=== PATIENT | male | born 1965 | race Caucasian/White ===

== ENCOUNTER 2018-02-21 06:41 | Inpatient (IN) | payer MEDICARE ==
[~2018-02-21] VITALS: Ht 195.6 cm; Wt 112.9 kg
[2018-02-21] VITALS (16 sets, daily range): BP systolic 98–157; BP diastolic 54–108; BMI 29.7
--- NOTE | ~2018-02-21 | CN ---
PATIENT NAME:ALBINO RENDON MEDICAL RECORD: [id number] : 67 LOCATION:D.MS [id number] ADMIT DATE: 02/21/18 ACCOUNT: [id number] CONSULTING PHYSICIAN: CRISTAL BREEN MD REFERRING PHYSICIAN: MARIANO VAIL MD DATE OF CONSULTATION: 02/21/2018 CONSULT REQUESTING PHYSICIAN: Mariano Vail MD REASON FOR CONSULTATION: 1. Acute hypoxic hypercapnic respiratory failure. 2. Respiratory acidosis. CTA showed pulmonary nodule. HISTORY OF PRESENT ILLNESS: Mr. Rendon is a 52-year-old gentleman. He had some drinks yesterday and he also smoked cocaine. When the patient lied down, he had shortness of breath. The patient was brought into the ER. He was in alcohol intoxication and also wheezing. Now, the patient is more awake and alert. Breathing has significantly improved. The patient had CTA of the chest which showed multiple pulmonary nodules without any infiltrate. REVIEW OF THE SYSTEMS: Mainly in the history of present illness. PAST MEDICAL HISTORY: 1. COPD. 2. Obstructive sleep apnea. The patient is noncompliant. 3. Coronary artery disease. 4. Hypertension. 5. History of syncope. 6. Diabetes mellitus. 7. Gastroesophageal reflux disease. 8. History of testicular cancer in 1997. He was treated with chemotherapy, right orchiectomy. OTHER SURGICAL HISTORY: He had bilateral knee replacement and cardiac catheterization with stent placement. ALLERGIES: HE IS ALLERGIC TO BUSPAR AND HALOPERIDOL. MEDICATIONS: Instaradio was reviewed. PERSONAL AND SOCIAL HISTORY: The patient is still everyday smoking. He is drinking on regular basis. He has recreational drug, cocaine. FAMILY HISTORY: Significant for cardiovascular disease. PHYSICAL EXAMINATION: GENERAL: Now, the patient is lying comfortably in bed. He is not in acute distress. VITAL SIGNS: The blood pressure is 101/72, pulse is 72, respiration is 18, temperature is 98.4, and SpO2 is 95% on oxymizer. HEENT: Conjunctivae are pink. Sclerae are not icteric. NECK: Neck is supple. No JVD. CHEST: There is prolonged expiration with wheezing. HEART: Rhythm regular. Normal sound. No murmur. ABDOMEN: Abdomen is soft. Bowel sounds present. No hepatosplenomegaly. CONSULT REPORT [id number] ALBINO RENDON RECTAL: Deferred. EXTREMITIES: No cyanosis. No clubbing. No pedal edema. CENTRAL NERVOUS SYSTEM: The patient is awake and alert. There is no obvious skin abnormality. The gait was not tested. CTA of the chest did not show any pulmonary embolism. There were bilateral pulmonary nodules and the maximum size was 8 mm. OTHER LABORATORY DATA: CBC: WBC 9.4, hemoglobin 15.7, hematocrit 43.7, platelet count is 239. ABG on admission; the pH was 7.16, pCO2 was 56.9, the pO2 was 91, bicarb was 20.4. The repeat ABG; pH was 7.29, pCO2 was 46.4. IMPRESSION: 1. Acute hypoxic hypercapnic respiratory failure. 2. Respiratory acidosis. 3. Acute exacerbation of COPD. 4. Tracheobronchitis. 5. Multiple pulmonary nodules. Differential diagnosis is rule out metastatic CA of the testis. Other differential diagnosis includes sarcoidosis and infectious process. 6. Alcoholism. 7. Tobacco dependence syndrome. 8. Recreational drug abuse. RECOMMENDATION: 1. Continue supplemental oxygen. 2. Start on albuterol/ipratropium nebulizer, Brovana and budesonide nebulizer. 3. Methylprednisolone IV. 4. Continue Levaquin. I will discontinue meropenem. 5. Methylprednisolone IV. 6. I will check S-level, alpha-1 antitrypsin phenotype. Check the fungal antibody serology. 7. We will consult Dr. Christianson. Dr. Vail, thank you for involving me in the care of Mr. Rendon. TRANSINT:[id number] Voice Confirmation ID: [id number] DOCUMENT ID: [id number] CRISTAL BREEN MD at 1806 CC: [id number] DICTATION DATE: 02/21/18 1845 DIRECTOR OF PAYROLL: 02/21/18 192 DIS IN 02/24/18 [facility] [address] [place] [address]
[~2018-02-21 06:41] MED LIST: ABILIFY10 MG PO; ALTACE10 MG PO; ASPIRIN325 MG PO; ATIVAN1 MG PO; BETAPACE 80 MG80 MG PO; COMBIVENT RESPIM4 GM INH; CRESTOR20 MG PO; CYCLOBENZAPRINE10 MG PO; DEPAKOTE500 MG PO; FIORICET TABLET1 TAB PO; FLEXERIL10 MG PO; JANUVIA25 MG PO; KLONOPIN1 MG PO; LEVEMIR100 U/M1 SQ; LONITEN10 MG PO; NEXIUM40 MG PO; NICODERM C1 PATCH .1 TRANSDERM; NITROMIST8.5 GM SL; NORCO 10/325 TA1 TA1 PO; NORVASC10 MG PO; PLAVIX75 MG PO; PRILOSEC10 M1 PO; TENORMIN100 MG PO; TESTOSTERON200 MG/ML IM
[2018-02-21 06:58] LABS: BASOPHILS 0.1 % (0-2); EOSINOPHILS 0.1 % (0-7); HEMATOCRIT 43.7 % (42.0-54.0); HEMOGLOBIN 15.7 g/dL (13.5-17.5); IMMATURE GRANULOCYTES 0.4 % (0-5); LYMPHOCYTES 20.9 % (15-50); MCHC 35.9 g/dL (31.0-37.0); MCV 94.6 fL (80.0-100.0); MEAN PLATELET VOLUME 9.6 fL (7.4-10.4); MONOCYTES 5.7 % (2-11); NEUTROPHILS 72.8 % (40-80); PLATELET COUNT 239 10x3/uL (130-400); RBC 4.62 10x6/uL (4.20-6.10); RDW 12.9 % (11.5-14.5); WBC 9.5 10x3/uL (4.8-10.8)
[2018-02-21 07:17] LABS: ALBUMIN 3.6 g/dL (3.4-5.0); ALKALINE PHOSPHATASE 88 U/L (46-116); ALT (SGPT) 57 U/L (10-68); BILIRUBIN - TOTAL 0.76 mg/dL (0.2-1.3); CALC OSMOLALITY 280 mosm/kg (275-300); CALCIUM 8.9 mg/dL (8.5-10.1); CARBON DIOXIDE 18.7 mmol/L (21.0-32.0); CHLORIDE - SERUM 93 mmol/L (98-107); CREATININE - SERUM 1.2 mg/dL (0.6-1.3); POTASSIUM - SERUM 3.4 mmol/L (3.5-5.1); PROTEIN - SERUM 7.7 g/dL (6.4-8.2); SODIUM 135 mmol/L (136-145); UREA NITROGEN 6 mg/dL (7-18); eGFR NON AFRICAN AMERICAN 68 mL/min (90-120)
[2018-02-21 07:18] LABS: UDS - AMPHET NEGATIVE QUAL (NEGATIVE); UDS - BARB NEGATIVE QUAL (NEGATIVE); UDS - BENZO NEGATIVE QUAL (NEGATIVE); UDS - COCAINE POSITIVE QUAL (NEGATIVE); UDS - OPIATE NEGATIVE QUAL (NEGATIVE); UDS - PCP NEGATIVE QUAL (NEGATIVE); UDS - THC NEGATIVE QUAL (NEGATIVE)
[2018-02-21 07:20] LABS: GLUCOSE 329 mg/dL (74-106)
[2018-02-21 07:29] LABS: CREATINE KINASE 116 UL (21-232); PRO BNP 190 pg/mL (0-125); TROPONIN-I < 0.017 ng/mL (0.000-0.060)
[2018-02-21 07:30] LABS: APPEARANCE CLOUDY (CLEAR); BILIRUBIN NEGATIVE (NEGATIVE); COLOR YELLOW (YELLOW); GLUCOSE 1000 mg/dL (NEGATIVE); KETONE NEGATIVE (NEGATIVE); NITRITE NEGATIVE (NEGATIVE); PROTEIN 3+ mg/dL (NEGATIVE); SPECIFIC GRAVITY 1.025 (1.005-1.020); UROBILINOGEN NORMAL (NORMAL)
[2018-02-21 07:32] LABS: AMORPHOUS SEDIMENT <1+ /lpf (NONE SEEN); BACTERIA FEW /hpf (NONE SEEN); EPITHELIAL CELLS 0-5 /hpf (0-5); RED CELLS - URINE 0-5 /hpf (0-5); SPERMATOZOA PRESENT /hpf (NONE SEEN); WHITE CELLS - URINE 0-5 /hpf (0-5)
[2018-02-21 08:40] LABS: KETONE - SERUM NEGATIVE (NEGATIVE)
[2018-02-21] MEDS ORDERED: LEVEMIR100 U/M1 SC ×2 (10:14→10:15)
[2018-02-21] MEDS ORDERED: MULTIPLE VITAMI1 TA1 PO (10:19)
[2018-02-22] VITALS (17 sets, daily range): BP systolic 103–136; BP diastolic 60–85; Ht 195.6 cm; Wt 112.9 kg
[2018-02-22 03:51] LABS: BASOPHILS 0 % (0-2); EOSINOPHILS 0 % (0-7); HEMATOCRIT 40.9 % (42.0-54.0); HEMOGLOBIN 14.7 g/dL (13.5-17.5); IMMATURE GRANULOCYTES 0.2 % (0-5); LYMPHOCYTES 4.2 % (15-50); MCHC 35.9 g/dL (31.0-37.0); MCV 94.7 fL (80.0-100.0); MEAN PLATELET VOLUME 9.6 fL (7.4-10.4); MONOCYTES 4.5 % (2-11); NEUTROPHILS 91.1 % (40-80); RBC 4.32 10x6/uL (4.20-6.10)
[2018-02-22 04:20] LABS: ALKALINE PHOSPHATASE 63 U/L (46-116); ALT (SGPT) 44 U/L (10-68); CALCIUM 8.6 mg/dL (8.5-10.1); CHLORIDE - SERUM 101 mmol/L (98-107); LDH 165 U/L (85-227); PROTEIN - SERUM 6.8 g/dL (6.4-8.2); SODIUM 139 mmol/L (136-145)
[2018-02-22 04:24] LABS: CALC OSMOLALITY 281 mosm/kg (275-300); CARBON DIOXIDE 31.4 mmol/L (21.0-32.0); CREATININE - SERUM 0.8 mg/dL (0.6-1.3); GLUCOSE 193 mg/dL (74-106); POTASSIUM - SERUM 4.2 mmol/L (3.5-5.1); UREA NITROGEN 10 mg/dL (7-18); eGFR NON AFRICAN AMERICAN > 90 mL/min (90-120)
[2018-02-22 04:25] LABS: PLATELET COUNT 188 10x3/uL (130-400); WBC 12.3 10x3/uL (4.8-10.8)
[2018-02-23 00:33] VITALS: BP 135/81
[2018-02-23 04:00] VITALS: BP 117/65
[2018-02-23 07:13] LABS: BASOPHILS 0 % (0-2); EOSINOPHILS 0 % (0-7); HEMATOCRIT 41.1 % (42.0-54.0); HEMOGLOBIN 14.5 g/dL (13.5-17.5); IMMATURE GRANULOCYTES 0.3 % (0-5); MCH 33.7 pg (26.0-34.0); MCHC 35.3 g/dL (31.0-37.0); MCV 95.6 fL (80.0-100.0); MEAN PLATELET VOLUME 9.8 fL (7.4-10.4); NEUTROPHILS 91.7 % (40-80); PLATELET COUNT 183 10x3/uL (130-400); RDW 13.3 % (11.5-14.5); WBC 10.2 10x3/uL (4.8-10.8)
[2018-02-23 07:27] LABS: ALBUMIN 2.7 g/dL (3.4-5.0); ALKALINE PHOSPHATASE 51 U/L (46-116); ALT (SGPT) 41 U/L (10-68); BILIRUBIN - TOTAL 0.34 mg/dL (0.2-1.3); CALC OSMOLALITY 274 mosm/kg (275-300); CALCIUM 8.9 mg/dL (8.5-10.1); CARBON DIOXIDE 28.1 mmol/L (21.0-32.0); CHLORIDE - SERUM 100 mmol/L (98-107); CREATININE - SERUM 0.7 mg/dL (0.6-1.3); GLUCOSE 131 mg/dL (74-106); MAGNESIUM - SERUM 1.6 mg/dL (1.8-2.4); PHOSPHOROUS 3.7 mg/dL (2.5-4.9); POTASSIUM - SERUM 4.1 mmol/L (3.5-5.1); PROTEIN - SERUM 6.7 g/dL (6.4-8.2); SODIUM 136 mmol/L (136-145); UREA NITROGEN 14 mg/dL (7-18); eGFR NON AFRICAN AMERICAN > 90 mL/min (90-120)
[2018-02-23 07:36] LABS: HCG-QUANTITATIVE(TUMOR MARKER) <1 mIU/mL (0-3)
[2018-02-23 08:42] VITALS: BP 144/84
[2018-02-23 09:18] LABS: ALPHA FETOPROTEIN -(TUMOR MRK) 3.4 ng/mL (0.0-8.3)
[2018-02-23 12:43] VITALS: BP 124/77
[2018-02-23 16:47] VITALS: BP 138/85
[2018-02-23 20:00] VITALS: BP 143/86
[2018-02-24 03:12] LABS: ANGIOTENSIN CONVERTING ENZYME < 15 U/L (14-82)
[2018-02-24 04:00] VITALS: BP 128/73
[2018-02-24 04:57] LABS: BASOPHILS 0 % (0-2); EOSINOPHILS 0.1 % (0-7); HEMATOCRIT 44.6 % (42.0-54.0); HEMOGLOBIN 15.9 g/dL (13.5-17.5); IMMATURE GRANULOCYTES 0.3 % (0-5); LYMPHOCYTES 18.8 % (15-50); MCH 33.9 pg (26.0-34.0); MCHC 35.7 g/dL (31.0-37.0); MCV 95.1 fL (80.0-100.0); MEAN PLATELET VOLUME 9.9 fL (7.4-10.4); MONOCYTES 7.5 % (2-11); NEUTROPHILS 73.3 % (40-80); PLATELET COUNT 194 10x3/uL (130-400); RBC 4.69 10x6/uL (4.20-6.10); WBC 8.7 10x3/uL (4.8-10.8)
[2018-02-24 05:14] LABS: CALC OSMOLALITY 274 mosm/kg (275-300); CALCIUM 9.4 mg/dL (8.5-10.1); CARBON DIOXIDE 30.2 mmol/L (21.0-32.0); CHLORIDE - SERUM 97 mmol/L (98-107); CREATININE - SERUM 0.8 mg/dL (0.6-1.3); POTASSIUM - SERUM 4.2 mmol/L (3.5-5.1); SODIUM 134 mmol/L (136-145); UREA NITROGEN 15 mg/dL (7-18); eGFR NON AFRICAN AMERICAN > 90 mL/min (90-120)
[2018-02-24 05:17] LABS: GLUCOSE 204 mg/dL (74-106)
[2018-02-24 07:31] LABS: HCG-QUANTITATIVE(TUMOR MARKER) <1 mIU/mL (0-3)
[2018-02-24 08:49] VITALS: BP 130/70
[2018-02-24 09:19] LABS: ALPHA FETOPROTEIN -(TUMOR MRK) 3.5 ng/mL (0.0-8.3); CEA 2.5 ng/mL (0.0-4.7)
[2018-02-24] MEDS ORDERED: LEVAQUIN750 MG PO (11:59)
[2018-02-24] MEDS ORDERED: PREDNISONE10 MG PO (12:01)
[2018-02-24 12:50] VITALS: BP 121/81
[2018-02-26 19:13] LABS: FUNGAL - ASP FLAVUS Negative (Neg:<1:1); FUNGAL - ASP NIGER Negative (Neg:<1:1); FUNGAL - ASPER FUMIGATUS Negative (Neg:<1:1)
== END 2018-02-24 14:40 | disposition home or self-care (01) | DRG 189 ==
LOC: D.ER 06:41 → D.ICU 09:07 → D.EDHOLD 09:07 → D.MS 09:07 → D.ICU 09:22 → D.MS 02-22 17:18
PROVIDERS: Emergency Medicine; Family Medicine; Internal Medicine Hematology & Oncology; Internal Medicine Nephrology; Internal Medicine Pulmonary Disease
DX: J96.01 Acute respiratory failure with hypoxia (principal); J44.0 Chronic obstructive pulmonary disease with (acute) lower respiratory infection; E87.2 Acidosis; F17.203 Nicotine dependence unspecified, with withdrawal; J44.1 Chronic obstructive pulmonary disease with (acute) exacerbation; J96.02 Acute respiratory failure with hypercapnia; J20.9 Acute bronchitis, unspecified; F10.229 Alcohol dependence with intoxication, unspecified; F14.10 Cocaine abuse, uncomplicated; R91.8 Other nonspecific abnormal finding of lung field; G47.33 Obstructive sleep apnea (adult) (pediatric); Z91.19 Patient's noncompliance with other medical treatment and regimen; I25.10 Atherosclerotic heart disease of native coronary artery without angina pectoris; I10 Essential (primary) hypertension; E78.5 Hyperlipidemia, unspecified; E11.9 Type 2 diabetes mellitus without complications; K21.9 Gastro-esophageal reflux disease without esophagitis

== ENCOUNTER 2018-03-05 05:51 | Outpatient (CLI) | payer MEDICARE ==
[~2018-03-05] VITALS: Ht 195.6 cm; Wt 106.8 kg
[~2018-03-05 05:51] MED LIST changes: +LEVAQUIN750 MG PO; +LEVEMIR100 U/M1 SC; +MULTIPLE VITAMI1 TA1 PO; +PREDNISONE10 MG PO
[2018-03-05 06:08] LABS: BASOPHILS 0.3 % (0-2); EOSINOPHILS 1.1 % (0-7); HEMATOCRIT 42.8 % (42.0-54.0); HEMOGLOBIN 15.3 g/dL (13.5-17.5); IMMATURE GRANULOCYTES 0.3 % (0-5); LYMPHOCYTES 23.5 % (15-50); MCH 33.9 pg (26.0-34.0); MCHC 35.7 g/dL (31.0-37.0); MCV 94.9 fL (80.0-100.0); MEAN PLATELET VOLUME 9.9 fL (7.4-10.4); MONOCYTES 10.4 % (2-11); NEUTROPHILS 64.4 % (40-80); PLATELET COUNT 216 10x3/uL (130-400); RBC 4.51 10x6/uL (4.20-6.10); RDW 13.1 % (11.5-14.5); WBC 7.2 10x3/uL (4.8-10.8)
[2018-03-05 06:27] LABS: APTT 26.9 SECONDS (22.8-39.4); INR 1.05 (0.85-1.17); PROTIME 13.3 SECONDS (11.6-15.0)
[2018-03-05 06:33] LABS: CALC OSMOLALITY 286 mosm/kg (275-300); CALCIUM 9.5 mg/dL (8.5-10.1); CARBON DIOXIDE 26.8 mmol/L (21.0-32.0); CHLORIDE - SERUM 103 mmol/L (98-107); CREATININE - SERUM 0.8 mg/dL (0.6-1.3); POTASSIUM - SERUM 4.1 mmol/L (3.5-5.1); SODIUM 140 mmol/L (136-145); UREA NITROGEN 10 mg/dL (7-18); eGFR NON AFRICAN AMERICAN > 90 mL/min (90-120)
[2018-03-05 06:41] LABS: GLUCOSE 261 mg/dL (74-106)
[2018-03-05 08:42] VITALS: BP 124/76; Ht 195.6 cm; Wt 106.8 kg
== END 2018-03-05 10:00 | disposition home or self-care (01) ==
LOC: D.SP 05:51 → D.CT 08:00 → D.SP 10:00
PROVIDERS: Radiology Diagnostic Radiology
DX: R91.8 Other nonspecific abnormal finding of lung field (principal); Z53.8 Procedure and treatment not carried out for other reasons; Z01.812 Encounter for preprocedural laboratory examination

== ENCOUNTER 2018-04-04 07:39 | Emergency (ER) | payer MEDICARE ==
[~2018-04-04] VITALS: Ht 195.6 cm; Wt 111.4 kg
[2018-04-04 07:45] VITALS: Ht 195.6 cm; Wt 111.4 kg
[2018-04-04] MEDS ORDERED: CYCLOBENZAPRINE10 MG PO (08:37)
[2018-04-04] MEDS ORDERED: HYDROCODONE-APA1 TAB PO (08:37)
[2018-04-04] MEDS ORDERED: ATIVAN1 MG PO (08:37)
[2018-04-04 09:00] VITALS: BP 143/91
== END 2018-04-04 09:01 | disposition home or self-care (01) ==
LOC: D.ER 07:39
DX: M54.5 Low back pain (principal); E11.9 Type 2 diabetes mellitus without complications; I10 Essential (primary) hypertension; J44.9 Chronic obstructive pulmonary disease, unspecified

== ENCOUNTER → 2018-04-06 17:31 | Outpatient (CLI) | payer MEDICARE ==
[2018-04-04 07:45] VITALS: BMI 29.1
[~2018-04-06 17:31] MED LIST changes: +HYDROCODONE-APA1 TAB PO
== END | disposition home or self-care (01) ==
LOC: D.MRI 04-05 18:00
DX: M54.5 Low back pain (principal)

== ENCOUNTER → 2018-06-07 09:24 | Outpatient (CLI) | payer OTHER ==
[2018-04-04 07:45] VITALS: BMI 29.1
== END | disposition home or self-care (01) ==
LOC: D.RT 09:24 → D.CT 09:30
DX: J44.9 Chronic obstructive pulmonary disease, unspecified (principal)

== ENCOUNTER 2018-06-12 08:15 | Outpatient (CLI) | payer OTHER ==
[~2018-06-12] VITALS: Ht 195.6 cm; Wt 100.0 kg
--- NOTE | ~2018-06-12 | HP ---
PATIENT: ALBINO PADILLA MEDICAL RECORD: [id number] ACCOUNT: [id number] LOCATION:MI : 67 ADMISSION DATE: 06/12/18 PCP: ESHA YRAN MD HISTORY AND PHYSICAL EXAMINATION DATE OF SERVICE: 06/12/2018 ADMITTING DIAGNOSES: 1. Unstable angina. 2. Coronary artery disease. 3. Previous multivessel percutaneous transluminal coronary angioplasty stent. 4. Hypertension. 5. Hyperlipidemia. 6. Paroxysmal atrial fibrillation, controlled in sinus rhythm on sotalol. HISTORY OF PRESENT ILLNESS: Mr. Padilla presents with 2 weeks of increasing anginal symptomatology, worsening over the past week, severe chest pain last night. He continues to have episodes of chest pain this morning while in the ER. PHYSICAL EXAMINATION: GENERAL APPEARANCE: Well-nourished, well-developed, appears stated age. Level of distress, comfortable. PSYCHIATRIC: Mental status, alert, normal affect. Orientation, oriented to time, place and person. EYES: Lids and conjunctiva, noninjected. No discharge, no pallor. ENT: Lips, teeth, gums, normal dentition. Oropharynx, no cyanosis, no pallor. NECK: Carotid arteries, bilateral normal upstroke, no bruits, no thrills. JUGULAR VEINS: No jugular venous pressure or distention. CERVICAL LYMPH NODES: Nontender, nonenlarged. THYROID: Not enlarged. Nontender. No nodules. LUNGS: Respiratory effort, unlabored. CHEST: Normal curvature. No thoracic deformity. No chest wall tenderness. Percussion, resonant. Auscultation, clear. No wheezes, no rales, no rhonchi. CARDIOVASCULAR: Precordial exam, nondisplaced. No heaves or pericardial thrills. Rate and rhythm, regular. Heart sounds, normal S1, normal S2. No S3, no gallop, no rub. Systolic murmur, not heard. Diastolic murmur, not heard. EXTREMITIES: No cyanosis, no edema. Peripheral pulses, full and equal in all extremities, except as noted. No bruits appreciated. ABDOMEN: Soft, nondistended. Normal aorta. No bruit. Nontender. No masses. Liver, nontender, no hepatomegaly. Spleen, nontender, no splenomegaly. MUSCULOSKELETAL: No joint tenderness. No joint swelling. No erythema. NEUROLOGICAL: Normal gait, normal strength, normal tone. SKIN: Warm and dry. REVIEW OF SYSTEMS: The patient reports easy bruising but reports no swollen glands. The patient reports no fever, no night sweats, no significant weight gain, no significant weight loss. No significant exercise tolerance. The patient reports no dry eyes, no irritation, no vision change. Patient reports no difficulty hearing and no ear pain. Patient reports no frequent nose bleeds or nose and sinus problems. Patient reports on arm pain on exertion. No shortness of breath while lying down. No history of heart murmur. Patient reports no cough, no wheezing or coughing up blood. Patient reports no abdominal pain, no vomiting. Normal appetite. No diarrhea and not vomiting blood. No nausea and no constipation. Patient reports no incontinence. No HISTORY AND PHYSICAL [id number] ALBINO PADILLA difficulty urinating. No hematuria. No increased frequency. Patient reports no muscle aches. No weakness, no arthralgias, no back pain. No swelling of the extremities. Patient reports no abnormal mole, no jaundice, no rashes. Reports no loss of consciousness. No weakness and no numbness. No seizures, dizziness, or headaches. The patient reports no depression, no sleep disturbance, feeling safe in a relationship and no alcohol abuse. Patient reports on fatigue. Reports no runny nose or sinus pressure. No itching, no hives, and no frequent sneezing. OVERALL IMPRESSION: Anginal symptomatology, most likely he has recurrent hemodynamically significant coronary artery disease. We will proceed with coronary angiography. Further care depends upon findings of the angiography. TRANSINT:[id number] Voice Confirmation ID: [id number] DOCUMENT ID: [id number] BEBETO ZARAGOZA MD at 1823 CC: [id number] DICTATION DATE: 06/12/18 0950 STATION WORKER: 06/12/18 1006 DEP CLI 06/12/18 [address] [place] [address]
--- NOTE | ~2018-06-12 | OP ---
PATIENT NAME: ALBINO RENDON MEDICAL RECORD: [id number] :67 LOCATION:D.OPS ADMISSION DATE: SURGEON: BEBETO ZARAGOZA MD DATE OF OPERATION: 06/12/2018 PROCEDURES: 1. Left heart catheterization. 2. Selective coronary angiography. 3. Left ventriculogram. INDICATIONS: Chest pain compatible with angina and coronary artery disease and previous multivessel PTCA and stent. PROCEDURE IN DETAIL: After informed consent was obtained and after a detailed description of the risks, benefits as well as alternative therapies, the patient elected to proceed with angiogram and heart catheterization. The right femoral area was prepped and draped in normal sterile fashion. Right femoral artery was cannulated via modified Seldinger technique with placement of 6-Urdu sheath. All catheters exchanged through this sheath. FINDINGS: The left ventriculogram was performed in standard 30-degree ALVARADO view, reveals good cardiac wall motion throughout all segments. Overall ejection fraction estimated at 60%. SELECTIVE CORONARY ANGIOGRAPHY: 1. Left main showed no significant angiographic disease. 2. Left anterior descending has previously placed stents, these are widely patent with no significant restenosis. No disease elsewise at the LAD or its branches. 3. Left circumflex has moderate irregularities but no flow-limiting stenosis. 4. The right coronary has previously placed stents, these are widely patent with no significant restenosis. No disease elsewise at the RCA or its branches. OVERALL IMPRESSION: Wide patency of all the previously placed stents with no significant restenosis. No disease elsewise, preserved left ventricular function. Chest pain is noncardiac in etiology at this point. TRANSINT:[id number] Voice Confirmation ID: [id number] DOCUMENT ID: [id number] BEBETO ZARAGOZA MD at 1823 CC: [id number] DICTATION DATE: 06/12/18 1146 ASSEMBLER TESTER: 06/12/18 1233 DEP CLI 06/12/18 [place] [id number]
--- NOTE | ~2018-06-12 | HEMODYNAMI ---
PATIENT:ALBINO RENDON MEDICAL RECORD: [id number] : 67 LOCATION:[facility] ADMISSION DATE: 06/12/18 Generatedon:06/12/201811:47 Patient name: ALBINO RENDON Patient #: [id number] SSN: DO B: 1965 Date of study: 06/12/2018 Page: Of Hemodynamic Procedure Report Patient Data Patient Demographics Procedure consent was obtained First Name: ALBINO Gender: Male Last Name: JULIETA : 1965 Middle Initial: D Age: 53 year(s) Patient #: [id number] Race: Unknown Additional ID: [id number] Contact details Address: [address] [place] [address] State: [place] City: [facility] Zip code: [address] Past Medical History Allergies Allergen Reaction Date Comments Reported Other allergy 06/25/2016 Haloperidol Lactate, Buspirone, HCL, Zolpidem tartrate Other allergy 06/12/2018 BuSpar, Haldol, ambien Admission Admission Data Admission Date: 06/12/2018 Admission Time: 8:15 Weight (lbs.): 256.53 Weight (kg.): 116.36 Lab Results Lab Result Date: 06/12/2018 Lab Result Time: 8:32 Biochemistry Name Units Result Min Max BUN mg/dl 5 -*(----)-- 7 18 Creatinine mg/dl 0.6 --(*---)-- 0.6 1.3 CBC Name Units Result Min Max Hematocrit % 47 --(-*--)-- 42 54 Hemoglobin g/dl 17.3 --(---*)-- 13.5 17.5 Procedure Procedure Types Cath Procedure Diagnostic Procedure LHC LHC w/Coronaries Procedure Description Procedure Date Procedure Date: 06/12/2018 Procedure Start Time: 11:36 Procedure End Time: 11:45 Procedure Staff Name Function Jairo Nesbitt MD Performing Physician Christo Mercado RT Monitor Melissa Montes RT Scrub Liz Chavez RN Nurse Procedure Data Cath Procedure Fluoroscopy Diagnostic fluoroscopy Total fluoroscopy Time: 0.7 time: 0.7 min min Diagnostic fluoroscopy Total fluoroscopy dose: 561 dose: 561 mGy mGy Contrast Material Contrast Material Type Amount (ml) Isovue 300 48 Entry Location Entry Primary Successful Side Size Upsize Upsize Entry Closure Succes sful Closure Location (Fr) 1 (Fr) 2 (Fr) Remarks Device Remarks Femoral Right 6 Fr Exoseal artery Short Estimated blood loss: 5 ml Diagnostic catheters Device Type Used For End Catheter Placement MULTIPACK Pigtail 5 Fr Procedure catheter MULTIPACK JL 4.0 5Fr Procedure catheter MULTIPACK 3DRC 5Fr Procedure catheter Procedure Complications No complications Procedure Medications Medication Administration Route Dosage Oxygen NC 2 l/min Lidocaine 2% added to field 20 Heparin Flush Bag added to field 2 bags (1000units/500ml NS) 0.9% NaCl I.V. 100 ml/hr Versed I.V. 2 mg Fentanyl I.V. 100 mcg Versed I.V. 2 mg Fentanyl I.V. 100 mcg Hemodynamics Rest HGB: 17.3 (g/dl) Heart Rate: 74 (bpm) Snapshots Pre Cath Intra NCS Post Cath Vital Signs Time Heart Resp SPO2 etCO2 NIBP (mmHg) Rhythm Pain Sedation Rate (ipm) (%) (mmHg) Status Level (bpm) 11:24:17 72 24 96 0 139/83(108) NSR 0 (11) 10(A) , No pain 11:29:06 73 17 100 24 150/88(118) NSR 0 (11) 10(A) , No pain 11:33:53 81 20 94 31.6 129/85(112) NSR 0 (11) 10(A) , No pain 11:38:42 77 19 96 36.9 134/77(109) NSR 0 (11) 10(A) , No pain 11:43:30 76 17 98 36.1 133/78(107) NSR 0 (11) 10(A) , No pain Medications Time Medication Route Dose Verified Delivered Reason Notes Effe ctiveness by by 11:27:13 Oxygen NC 2 Jairo Hill used for l/min Laz Chavez admin secretary 11:27:24 Lidocaine 2% added 20ml Jairo Gill for local to vial Laz Nesbitt MD anesthetic field 11:27:31 Heparin Flush added 2 Jairo Jairo used for Bag to bags Laz Nesbitt MD procedure (1000units/500ml field NS) 11:27:40 0.9% NaCl I.V. 100 Jairo Hill Per ml/hr Laz Chavez RN physician 11:34:30 Versed I.V. 2 mg Jairo Hill for Laz Chavez RN sedation 11:34:36 Fentanyl I.V. 100 Jairo Hill for mcg Laz Chavez RN sedation 11:37:36 Versed I.V. 2 mg Jairo Hill for Laz Chavez RN sedation 11:37:40 Fentanyl I.V. 100 Jairo Hill for mcg Laz Chavez RN sedation Procedure Log Time Note 10:59:46 Melissa Montes RT(R) sent for patient. Start room use. 10:59:47 Time tracking: Regular hours (M-F 7:00 - 5:00) 10:59:52 Plan of Care:Hemodynamics will remain stable., Cardiac rhythm will remain stable., Comfort level will be maintained., Respiratory function will remain adequate., Patient/ family verbilizes understanding of procedure., Procedure tolerated without complication., Recovers from procedure without complications.. 11:23:08 Patient received from ED to CCL 1 Alert and oriented. Tansferred to table in Supine position. 11:23:09 Warm blankets applied, and cheryl hugger turned on for patient comfort. 11:23:09 Correct patient and procedure confirmed by team. 11:23:11 Signed procedure consent form obtained from patient. 11:23:12 ECG and BP/O2 sat monitors applied to patient. 11:23:14 Vital chart was started 11:27:13 Oxygen 2 l/min NC was administered by Liz Chavez RN; used for procedure; 11:27:24 Lidocaine 2% 20ml vial added to field was administered by Jairo Nesbitt MD; for local anesthetic; 11:27:26 Baseline sample Acquired. 11:27:28 Rhythm: sinus rhythm 11:27:30 Full Disclosure recording started 11:27:31 Heparin Flush Bag (1000units/500ml NS) 2 bags added to field was administered by Jairo Nesbitt MD; used for procedure; 11:27:40 0.9% NaCl 100 ml/hr I.V. was administered by Liz Chavez RN; Per physician; 11:27:42 H&P Date Dictated: 06/12/2018 Within 30 days and on chart.. 11::43 Pre-procedure instructions explained to patient. 11::43 Pre-op teaching completed and patient verbalized understanding. 11:27:45 Family unavailable. 11:27:46 Patient NPO since Midnight. 11:30:00 Patient allergic to Other allergyBuSkatelyn, Rosangela, ambien 11:30:02 Is the patient allergic to Iodine/contrast media? No. 11:30:03 Is patient on blood thinner?No 11:30:04 Patient diabetic? Yes. 11:30:05 If diabetic: On Metformin? No 11:30:07 Previous problem with sedation/anesthesia? No ? 11:30:09 Snore? Yes 11:30:10 Sleep apnea? Yes 11:30:11 Deviated septum? No 11:30:11 Opens mouth fully? Yes 11:30:12 Sticks out tongue? Yes 11:30:15 Airway obstruction? Yes COPD 11:30:17 Dentures? No ? 11:30:20 Pre procedure: right dorsailis pedis pulse 2+ Normal; easily identifiable; not easily obliterated 11:30:22 Patient pain scale 0/10 ?. 11:30:28 IV patent on arrival in left antecubital with 0.9% NaCl at [facility]. 11:30:59 Lab Result : BUN 5 mg/dl 11:30:59 Lab Result : Hemoglobin 17.3 g/dl 11:30:59 Lab Result : Creatinine 0.6 mg/dl 11:30:59 Lab Result : Hematocrit 47 % 11:31:01 Lab results completed and on chart. 11:31:05 Right groin area was prepped with chlora-prep and draped in sterile fashion 11:31:05 Alarms reviewed by R. N. 11:31:06 Sharps counted by scrub and verified by R.N. 11:31:08 Use device set Femoral Dx 11:31:09 Bag Decanter (2002) opened to sterile field. 11:31:10 ACIST Syringe (31428) opened to sterile field. 11:31:10 Medline Cath Pack ([id number]) opened to sterile field. 11:31:11 ACIST Hand Control (06829) opened to sterile field. 11:31:11 ACIST Manifold (08929) opened to sterile field. 11:31:12 Tegaderm 4 x 4 (1626W) opened to sterile field. 11:31:15 DIAGNOSTIC Multipack 5Fr catheter set (IY7628) opened to sterile field. 11:31:17 DIAGNOSTIC WIRE .035 260cm J wire (965742) opened to sterile field. 11::25 Physician arrived 11:: --------ALL STOP TIME OUT------ 11:: Final Timeout: patient, procedure, and site verified with staff and physician. All members of the team are in agreement. 11::27 Right groin site verified by team. 11::30 Physical assessment completed. ASA score P 3 - A patient with severe systemic disease as per Jairo Nesbitt MD. 11:31:35 Sedation plan: IV Moderate Sedation Medication:Versed, Fentanyl 11:34:30 Versed 2 mg I.V. was administered by Liz Chavez RN; for sedation; 11:34:36 Fentanyl 100 mcg I.V. was administered by Liz Chavez RN; for sedation; 11:34:45 SHEATH Prelude 6Fr 0.035 ([id number]-8L-11-035) opened to sterile field. 11:34:59 Zero performed for pressure channel P1 11:36:08 Procedure started. 11:36:11 Local anesthetic to right femoral artery with Lidocaine 2% by Jairo Nesbitt MD.INITIAL ACCESS ONLY 11:37:10 A 6 Fr Short sheath was inserted into the Right Femoral artery 11:37:34 A MULTIPACK Pigtail 5 Fr catheter was advanced over the wire and used for Procedure. 11:37:36 Versed 2 mg I.V. was administered by Liz Chavez RN; for sedation; 11:37:39 Zero performed for pressure channel P1 11:37:40 Fentanyl 100 mcg I.V. was administered by Liz Chavez RN; for sedation; 11:37:42 Zero performed for pressure channel P1 11:37:56 LV gram done using ALVARADO 11:37:59 Injector settings: Ml/sec: 10, Volume: 20, 11:38:05 LV hemodynamics recorded. 11:38:13 EF : 60 % 11:38:14 Zero performed for pressure channel P1 11:38:17 Zero performed for pressure channel P1 11:38:24 Catheter exchanged over wire. 11:38:28 A MULTIPACK JL 4.0 5Fr catheter was advanced over the wire and used for Procedure. 11:38:31 LCA angiography performed. 11:38:41 Patient Weight : 256.53 lbs 11:39:50 Catheter exchanged over wire. 11:39:55 A MULTIPACK 3DRC 5Fr catheter was advanced over the wire and used for Procedure. 11:40:37 RCA angiography performed. 11:40:38 Catheter removed. 11:40:44 EXOSEAL 6Fr (EX600) opened to sterile field. 11:40:52 Sheath removed intact; hemostasis achieved with Exoseal to the Right Femoral artery. 11:40:53 Procedure ended.(Physican Out) 11:41:00 Fluoroscopy time 00.70 minutes. 11:41:04 Fluoroscopy dose: 561 mGy 11:41:04 Flurop Dose total: 561 11:41:06 Sharps counted by scrub and verified by R.N. 11:41:06 Insertion/operative site no bleeding no hematoma. 11:41:09 Post-op/insertion site Right Femoral artery dressed using a 4 x 4 and Tegaderm. 11:41:13 Post right femoral artery:stable, soft, clean and dry 11:41:14 Post Procedure Pulses reassessed and unchanged 11:41:20 Post-procedure physical assessment completed. ASA score P 3 - A patient with severe systemic disease as per Jairo Nesbitt MD. 11:41:24 Post procedure rhythm: unchanged. 11:41:28 Contrast amount:Isovue 300 48ml. 11:41:32 Estimated blood loss: 5 ml 11:41:34 Post procedure instruction explained to patient.Patient verbalizes understanding. 11:41:34 Patient needs reinforcement of post procedure teaching. 11:44:14 Procedure and supply charges have been captured, reviewed, submitted and are correct. 11:44:17 Procedure Complication : No complications 11:44:32 Vital chart was stopped 11:45:47 See physician's report for complete and final results. 11:45:48 Report given to PCU. 11:45:51 Patient transfered to PCU with Stretcher. 11:45:53 Procedure ended. 11:45:53 Full Disclosure recording stopped 11:45:56 End room use (Document Last) Device Usage Item Name Manufacture Quantity Catalog Hospital Part Current M inimal Lot# / Number Charge Number Stock Stock Serial# Code Bag Decanter Microtek 1 [id number] [id number] [id number] 5 (2001S) Medical Inc. ACIST Syringe Acist 1 38256 925249 325001 641849 2 0 (02402) [employer] Medline Cath Cardinal 1 [id number] 621405 46363 218148 5 Pack Health ([id number]) ACIST Hand Acist 1 98466 601181 826835 977070 5 Control (28343) Medical [employer] Inc ACIST Manifold Acist 1 50111 823519 530077 641772 5 (80506) Medical Systems Inc Tegaderm 4 x 4 3M 1 1626W 628331 233668 821815 5 (1626W) DIAGNOSTIC Cardinal 1 [id number] 572656 46935 577373 3 0 Multipack 5Fr Health catheter set ([id number]) DIAGNOSTIC WIRE [facility] [place] 1 800682 425943 448934 338864 3 0 .035 260cm J wire (648112) SHEATH Prelude Merit 1 IEF-3X-99-35 433861 1435145 644557 5 6Fr 0.035 Medical ([id number]-2O-09-035) MULTIPACK Cardinal 1 [id number] 5 Pigtail 5 Fr Health catheter MULTIPACK JL Cardinal 1 [id number] 5 4.0 5Fr Health catheter MULTIPACK 3DRC Cardinal 1 685826 5 5Fr catheter Health EXOSEAL 6Fr Cardinal 1 EX600 618334 103309 291847 1 0 (EX600) Health Signature Audit [place] Stage Time Signature Unsigned Intra-Procedure 06/12/2018 Christo Mercado 11:47:33 AM RT(R) Signatures Monitor : Christo Mercado RT Signature : Date : Time : [place] [address] [place] [address]
[2018-06-12 08:36] LABS: BASOPHILS 0.4 % (0-2); EOSINOPHILS 1.6 % (0-7); HEMOGLOBIN 17.3 g/dL (13.5-17.5); IMMATURE GRANULOCYTES 0.2 % (0-5); LYMPHOCYTES 39.5 % (15-50); MCH 34.7 pg (26.0-34.0); MCHC 36.8 g/dL (31.0-37.0); MCV 94.4 fL (80.0-100.0); MEAN PLATELET VOLUME 9.9 fL (7.4-10.4); MONOCYTES 10.9 % (2-11); NEUTROPHILS 47.4 % (40-80); PLATELET COUNT 215 10x3/uL (130-400); RBC 4.98 10x6/uL (4.20-6.10); RDW 12.7 % (11.5-14.5); WBC 4.9 10x3/uL (4.8-10.8)
[2018-06-12 08:55] LABS: APTT 24.7 SECONDS (22.8-39.4); INR 0.98 (0.85-1.17); PROTIME 12.6 SECONDS (11.6-15.0)
[2018-06-12 08:56] LABS: D-DIMER-QUANTITATIVE 0.59 ug/mLFEU (0.20-0.54)
[2018-06-12 08:58] LABS: ALBUMIN 3.6 g/dL (3.4-5.0); ALKALINE PHOSPHATASE 74 U/L (46-116); ALT (SGPT) 29 U/L (10-68); BILIRUBIN - TOTAL 0.35 mg/dL (0.2-1.3); CALC OSMOLALITY 280 mosm/kg (275-300); CALCIUM 8.8 mg/dL (8.5-10.1); CARBON DIOXIDE 27.7 mmol/L (21.0-32.0); CHLORIDE - SERUM 100 mmol/L (98-107); CREATININE - SERUM 0.6 mg/dL (0.6-1.3); GLUCOSE 215 mg/dL (74-106); POTASSIUM - SERUM 4.4 mmol/L (3.5-5.1); PROTEIN - SERUM 8.2 g/dL (6.4-8.2); SODIUM 139 mmol/L (136-145); UREA NITROGEN 5 mg/dL (7-18); eGFR NON AFRICAN AMERICAN > 90 mL/min (90-120)
[2018-06-12 09:09] LABS: CKMB 0.7 U/L (0.0-3.6); CREATINE KINASE 69 UL (21-232)
[2018-06-12 09:17] LABS: TROPONIN-I < 0.017 ng/mL (0.000-0.060)
[2018-06-12 15:48] VITALS: BP 130/73; Ht 195.6 cm; Wt 100.0 kg
[2018-06-12 16:11] VITALS: BP 140/74
== END 2018-06-12 19:02 | disposition home or self-care (01) ==
LOC: D.OPS 08:15 → D.M2 08:15 → D.ER 08:15 → EDSTATUS 09:56 → D.M2 12:16 → D.OPS 19:02
PROVIDERS: Family Medicine
DX: I25.110 Atherosclerotic heart disease of native coronary artery with unstable angina pectoris (principal); Z95.5 Presence of coronary angioplasty implant and graft; I10 Essential (primary) hypertension; E78.5 Hyperlipidemia, unspecified; I48.0 Paroxysmal atrial fibrillation; Z01.812 Encounter for preprocedural laboratory examination

== ENCOUNTER 2018-07-14 13:18 | Emergency (ER) | payer OTHER, MEDICAID ==
[~2018-07-14] VITALS: Ht 195.6 cm; Wt 117.3 kg
[2018-07-14 13:36] VITALS: Ht 195.6 cm; Wt 117.3 kg
[2018-07-14] MEDS ORDERED: ROBAXIN500 MG PO (16:38)
[2018-07-14] MEDS ORDERED: VOLTAREN75 MG PO (16:38)
[2018-07-14 16:47] VITALS: BP 140/68
== END 2018-07-14 16:49 | disposition home or self-care (01) ==
LOC: D.ER 13:18
DX: M54.5 Low back pain (principal); M62.838 Other muscle spasm; E11.9 Type 2 diabetes mellitus without complications; I10 Essential (primary) hypertension; I25.10 Atherosclerotic heart disease of native coronary artery without angina pectoris; J44.9 Chronic obstructive pulmonary disease, unspecified; Z85.47 Personal history of malignant neoplasm of testis

== ENCOUNTER → 2018-07-20 14:45 | Outpatient (CLI) | payer OTHER ==
[2018-07-14 13:36] VITALS: BMI 30.6
[~2018-07-20 14:45] MED LIST changes: +ROBAXIN500 MG PO; +VOLTAREN75 MG PO
== END | disposition home or self-care (01) ==
LOC: D.CT 14:45
DX: R91.8 Other nonspecific abnormal finding of lung field (principal)

== ENCOUNTER 2018-12-31 01:32 | Observation (INO) | payer MEDICARE ==
[~2018-12-31] VITALS: Ht 195.6 cm; Wt 106.6 kg
--- NOTE | ~2018-12-31 | DS ---
PATIENT:ALBINO PADILLA :67 MEDICAL RECORD: [id number] DISCHARGE SUMMARY ADMISSION DATE: 12/31/18 DISCHARGE DATE: 01/01/19 DISCHARGE DIAGNOSES: 1. Angina. 2. Coronary artery disease. 3. Percutaneous transluminal coronary angioplasty and stent to the left anterior descending this admission. 4. Hypertension. 5. Hyperlipidemia. HOSPITAL COURSE: Mr. Padilla presents with unstable anginal symptomatology, found to have 75% to 80% stenosis of his LAD, underwent successful PTCA and stent of the LAD, had no further chest discomfort, was discharged home with no changes in medications as he is already on aspirin and Plavix. Will follow up with [facility] as previously scheduled. TRANSINT:[id number] Voice Confirmation ID: [id number] DOCUMENT ID: [id number] BEBETO ZARAGOZA MD CC: [id number] DICTATION DATE: 01/01/19 1047 ELECTRON GUN ASSEMBLER: 01/02/19 0105 DIS IN 01/01/[id number] [place] [address]
--- NOTE | ~2018-12-31 | HEMODYNAMI ---
PATIENT:ALBINO RENDON MEDICAL RECORD: [id number] : 67 [facility] [id number] ADMISSION DATE: 12/31/18 Generatedon:12/31/201816:44 Patient name: ALBINO RENDON Patient #: [id number] SSN: DO B: 1965 Date of study: 12/31/2018 Page: Of Hemodynamic Procedure Report Patient Data Patient Demographics Procedure consent was obtained First Name: ALBINO Gender: Male Last Name: JULIETA : 1965 [facility] Initial: D Age: 53 year(s) Patient #: [id number] Race: Unknown Additional ID: [id number] Contact details Address: [address] [place] [address] State: [place] City: [facility] Zip code: [address] Past Medical History Allergies Allergen Reaction Date Comments Reported Other allergy 06/25/2016 Haloperidol Lactate, Buspirone, HCL, Zolpidem tartrate Other allergy 06/12/2018 BuSpar, Haldol, ambien Admission Admission Data Admission Date: 12/31/2018 Admission Time: 2:09 Room #: D.2132 Procedure Procedure Types Cath Procedure Diagnostic Procedure LHC LH w/Coronaries PCI Procedure Coronary Stent Coronary Stent Initial Procedure Description Procedure Date Procedure Date: 12/31/2018 Procedure Start Time: 16:32 Procedure End Time: 16:43 Procedure Staff Name Function Jairo Nesbitt MD Performing Physician Karan Saha RT Monitor Melissa Montes RT Scrub Manjit Alvarez RN Nurse Procedure Data Cath Procedure Fluoroscopy Diagnostic fluoroscopy Total fluoroscopy Time: 2.3 time: 2.3 min min Diagnostic fluoroscopy Total fluoroscopy dose: 578 dose: 578 mGy mGy Contrast Material Contrast Material Type Amount (ml) Isovue 370 51 Entry Location Entry Primary Successful Side Size Upsize Upsize Entry Closure Succes sful Closure Location (Fr) 1 (Fr) 2 (Fr) Remarks Device Remarks Femoral Right 5 Fr 6 Fr Exoseal artery Short Diagnostic catheters Device Type Used For End Catheter Placement MULTIPACK Pigtail 5 Fr LV Angiography catheter MULTIPACK JL 4.0 5Fr Left Coronary catheter Angiography MULTIPACK 3DRC 5Fr Right Coronary catheter Angiography Procedure Complications No complications Procedure Medications Medication Administration Route Dosage 0.9% NaCl I.V. 100 ml/hr Oxygen etCO2 Nasal cannula 2 l/min Heparin Flush Bag added to field 2 bags (1000units/500ml NS) Lidocaine 2% added to field 20 Versed I.V. 2 mg Fentanyl I.V. 100 mcg Versed I.V. 2 mg Fentanyl I.V. 100 mcg Versed I.V. 1 mg Fentanyl I.V. 50 mcg Heparin Bolus I.V. 4000 units Versed I.V. 1 mg Fentanyl I.V. 50 mcg Hemodynamics Rest Heart Rate: 72 (bpm) Snapshots Pre Cath Intra NCS Post Cath Vital Signs Time Heart Resp SPO2 etCO2 NIBP (mmHg) Rhythm Pain Sedation Rate (ipm) (%) (mmHg) Status Level (bpm) 15:57:10 71 24 99 20.1 128/80(106) NSR 0 (11) 10(A) , No pain 16:01:26 71 25 97 22.4 126/80(102) NSR 0 (11) 10(A) , No pain 16:05:49 74 23 93 29.8 131/78(101) NSR 0 (11) 10(A) , No pain 16:10:13 72 24 93 29.9 125/79(108) NSR 0 (11) 10(A) , No pain 16:14:31 71 23 93 35.1 134/86(109) NSR 0 (11) 10(A) , No pain 16:18:53 71 20 90 35.1 131/86(119) NSR 0 (11) 10(A) , No pain 16:23:17 72 22 95 29.8 133/80(107) NSR 0 (11) 10(A) , No pain 16:27:40 72 15 92 32.8 128/85(105) NSR 0 (11) 10(A) , No pain 16:32:00 70 36 92 26.1 124/87(106) NSR 0 (11) 10(A) , No pain 16:36:18 71 20 92 131/89(119) NSR 0 (11) 10(A) , No pain 16:40:42 70 16 91 144/83(117) NSR 0 (11) 10(A) , No pain Medications Time Medication Route Dose Verified Delivered Reason Notes Effectiveness by by 15:58:51 0.9% NaCl I.V. 100 Manjit Manjit Per physician ml/hr Kim Alvarez RN RN 15:59:00 Oxygen etCO2 2 Manjit Manjit for low 02 sats Nasal l/min Kim Alvarez cannula RN RN 15:59:12 Heparin Flush added 2 Manjit Manjit used for Bag to bags Kim Alvarez procedure (1000units/500ml field RN RN NS) 15:59:22 Lidocaine 2% added 20ml Manjit Manjit for local to vial Lormayra Alvarez anesthetic field RN RN 16:28:54 Versed I.V. 2 mg Manjit Manjit for sedation Kim Alvarez RN RN 16:29:03 Fentanyl I.V. 100 Manjit Manjit for sedation mcg Kim Alvarez RN RN 16:31:45 Versed I.V. 2 mg Manjit Manjit for sedation Kim Alvarez RN RN 16:31:51 Fentanyl I.V. 100 Manjit Manjit for sedation mcg Kim Alvarez RN RN 16:34:24 Versed I.V. 1 mg Manjit Manjit for sedation Kim Alvarez RN RN 16:34:31 Fentanyl I.V. 50 Manjit Manjit for sedation mcg Kim Alvarez RN RN 16:38:03 Heparin Bolus I.V. 4000 Manjit Manjit for units Kim eldridge RN RN 16:41:38 Versed I.V. 1 mg Manjit Manjit for sedation Kim Alvarez RN RN 16:41:44 Fentanyl I.V. 50 Manjit Manjit for sedation mcg Kim Alvarez RN electrical systems engineer Log Time Note 15:38:32 Diagnostic Cath Status : Elective 15:39:11 Manjit Alvarez RN sent for patient. Start room use. 15:39:13 Time tracking: Regular hours (M-F 7:00 - 5:00) 15:39:19 Plan of Care:Hemodynamics will remain stable., Cardiac rhythm will remain stable., Comfort level will be maintained., Respiratory function will remain adequate., Patient/ family verbilizes understanding of procedure., Procedure tolerated without complication., Recovers from procedure without complications.. 15:48:30 Patient received from Med II to CCL 1 Alert and oriented. Tansferred to table in Supine position. 15:48:31 Warm blankets applied, and cheryl hugger turned on for patient comfort. 15:48:32 Correct patient and procedure confirmed by team. 15:48:33 Signed procedure consent form obtained from patient. 15:48:34 ECG and BP/O2 sat monitors applied to patient. 15:55:54 Vital chart was started 15:55:55 Baseline sample Acquired. 15:55:59 Rhythm: sinus rhythm 15:56:02 Full Disclosure recording started 15:56:06 H&P Date Dictated: 12/31/2018 New H&P dictated by physician.. 15:56:18 Pre-procedure instructions explained to patient. 15:56:19 Pre-op teaching completed and patient verbalized understanding. 15:56:23 Patient NPO since Midnight. 15:56:25 Family unavailable. 15:56:29 Is the patient allergic to Iodine/contrast media? No. 15:56:30 Was the patient premedicated? No 15:56:31 Is patient on blood thinner?Yes 15:56:36 ACC The patient was administered the following blood thiners within the last 24 hours: ACCPlavix 15:56:39 Patient diabetic? Yes. 15:56:40 If diabetic: On Metformin? No 15:56:42 Previous problem with sedation/anesthesia? No ? 15:56:45 Snore? Yes 15:56:46 Sleep apnea? Yes 15:56:47 Deviated septum? No 15:56:47 Opens mouth fully? Yes 15:56:48 Sticks out tongue? Yes 15:56:53 Airway obstruction? Yes copd 15:56:56 Dentures? No ? 15:57:00 Pre procedure: right dorsailis pedis pulse 2+ Normal; easily identifiable; not easily obliterated 15:57:02 Pre procedure: left dorsailis pedis pulse 2+ Normal; easily identifiable; not easily obliterated 15:57:04 Patient pain scale 0/10 ?. 15:57:14 IV patent on arrival in left forearm with 0.9% NaCl at KVO. 15:57:16 Lab results completed and on chart. 15:57:20 Right groin area was prepped with chlora-prep and draped in sterile fashion 15:57:21 Alarms reviewed by R. N. 15:57:22 Sharps counted by scrub and verified by R.N. 15:58:51 0.9% NaCl 100 ml/hr I.V. was administered by Manjit Alvarez RN; Per physician; 15:59:00 Oxygen 2 l/min etCO2 Nasal cannula was administered by Manjit Alvarez RN; for low 02 sats; 15:59:12 Heparin Flush Bag (1000units/500ml NS) 2 bags added to field was administered by Manjit Alvarez RN; used for procedure; 15:59:22 Lidocaine 2% 20ml vial added to field was administered by Manjit Alvarez RN; for local anesthetic; 16:27:13 Physician arrived 16:27:13 --------ALL STOP TIME OUT------ 16:27:13 Final Timeout: patient, procedure, and site verified with staff and physician. All members of the team are in agreement. 16:27:15 Right groin site verified by team. 16:27:19 Maximum allowable Isovue 300 dose 300ml. Physician notified. (300ml for normal creatinines. For patients with creatinine of 1.7 or higher multiply weight(kg) x 5 divided by creatinine.) 16:27:24 Fire Safety Assessment: A--An alcohol-based skin anteseptic being used preoperatively., C--Open oxygen or nitrous oxide is being used., D--An ESU, laser, or fiber-optic light is being used. 16:27:27 Physical assessment completed. ASA score P 2 - A patient with mild systemic disease as per Jairo Nesbitt MD. 16:27:32 Sedation plan: IV Moderate Sedation Medication:Versed, Fentanyl 16:27:53 Zero performed for pressure channel P1 16:28:44 Use device set Femoral Dx 16:28:46 ACIST Syringe (08601) opened to sterile field. 16:28:46 Bag Decanter () opened to sterile field. 16:28:46 Medline Cath Pack ([id number]) opened to sterile field. 16:28:47 DIAGNOSTIC WIRE .035 260cm J wire (480790) opened to sterile field. 16:28:51 ACIST Hand Control (85696) opened to sterile field. 16:28:52 ACIST Manifold (27813) opened to sterile field. 16:28:53 DIAGNOSTIC Multipack 5Fr catheter set ([id number]) opened to sterile field. 16:28:53 Tegaderm 4 x 4 (1626W) opened to sterile field. 16:28:54 Versed 2 mg I.V. was administered by Manjit Alvarez RN; for sedation; 16:28:55 SHEATH 5FR [place] (QRE814) opened to sterile field. 16:29:00 Procedure started. 16:29:03 Fentanyl 100 mcg I.V. was administered by Manjit Alvarez RN; for sedation; 16:31:45 Versed 2 mg I.V. was administered by Manjit Alvarez RN; for sedation; 16:31:51 Fentanyl 100 mcg I.V. was administered by Manjit Alvarez RN; for sedation; 16:32:30 Local anesthetic to right femoral artery with Lidocaine 2% by Jairo Nesbitt MD.INITIAL ACCESS ONLY 16:32:38 A 5 Fr sheath was inserted into the Right Femoral artery 16:33:39 A MULTIPACK Pigtail 5 Fr catheter was advanced over the wire and used for LV Angiography. 16:34:05 LV angiography performed. 16:34:07 LV gram done using ALVARADO 16:34:12 EF : 55 % 16:34:24 Versed 1 mg I.V. was administered by Manjit Alvarez RN; for sedation; 16:34:31 Fentanyl 50 mcg I.V. was administered by Manjit Alvarez RN; for sedation; 16:35:42 Catheter removed. 16:35:49 A MULTIPACK JL 4.0 5Fr catheter was advanced over the wire and used for Left Coronary Angiography. 16:35:53 LCA angiography performed. 16:36:00 Catheter removed. 16:36:07 A MULTIPACK 3DRC 5Fr catheter was advanced over the wire and used for Right Coronary Angiography. 16:36:11 RCA angiography performed. 16:36:12 Catheter removed. 16:36:56 SHEATH 6FR [place] (ZJF738) opened to sterile field. 16:36:56 INFLATOR Merit BasixCompak (WD5804) opened to sterile field. 16:36:57 CHOICE PT Extra Support 182cm wire ([id number]) opened to sterile field. 16:36:57 EXOSEAL 6Fr (EX600) opened to sterile field. 16:36:58 GUIDE 6FR XBLAD 4.0 catheter ([id number]) opened to sterile field. 16:37:08 Sheath upsized to a 6 Fr Short. 16:37:17 6 Fr XBLAD 4 guide catheter was inserted over the wire 16:38:02 CPTES wire advanced. 16:38:03 Heparin Bolus 4000 units I.V. was administered by Manjit Alvarez RN; for anticoagulation; 16:41:38 Versed 1 mg I.V. was administered by Manjit Alvarez RN; for sedation; 16:41:39 Place stent Inflation Number: 1 A SHAUN RX 2.5 x 15 stent ([id number]) was prepped and advanced across the Mid LAD. The stent was deployed at 11 DESTINY for 0:11 (min:sec). 16:41:42 Stent catheter was removed intact over wire. 16:41:42 Wire removed. 16:41:44 Fentanyl 50 mcg I.V. was administered by Manjit Alvarez RN; for sedation; 16:41:45 Guide catheter removed. 16:41:53 Sheath removed intact; hemostasis achieved with Exoseal to the Right Femoral artery. 16:42:08 Contrast amount:Isovue 370 51ml. 16:42:11 Procedure ended.(Physican Out) 16:42:27 Fluoroscopy time 02.30 minutes. 16:42:33 Flurop Dose total: 578 16:42:33 Fluoroscopy dose: 578 mGy 16:42:35 Sharps counted by scrub and verified by R.N. 16:42:35 Insertion/operative site no bleeding no hematoma. 16:42:38 Post-op/insertion site Right Femoral artery dressed using a 4 x 4 and Tegaderm. 16:42:42 Post right femoral artery:stable 16:42:44 Post Procedure Pulses reassessed and unchanged 16:42:46 Post procedure: right dorsailis pedis pulse 1+ Palpable, but thready & weak; easily obliterated. 16:42:50 Post procedure rhythm: sinus rhythm 16:42:52 Post procedure instruction explained to patient.Patient verbalizes understanding. 16:42:53 Procedure and supply charges have been captured, reviewed, submitted and are correct. 16:43:10 Procedure type changed to Cath procedure, Diagnostic procedure, LHC, LHC w/Coronaries, PCI procedure, Coronary Stent, Coronary Stent Initial 16:43:15 Procedure Complication : No complications 16:43:18 Vital chart was stopped 16:43:18 See physician's report for complete and final results. 16:43:21 Report given to PCU. 16:43:25 Patient transfered to PCU with Bed. 16:43:27 Procedure ended. 16:43:27 Full Disclosure recording stopped 16:43:30 End room use (Document Last) Intervention Summary Intervention Notes Time ActionType Lesion and Equipment Used Action# Pressure Duration Attributes 16:41:39 Place stent Mid LAD SHAUN RX 2.5 x 1 11 00:11 15 stent ([id number]) Device Usage Item Name Manufacture Quantity Catalog Number Hospital Part Current M inimal Lot# / Charge Number Stock Stock Serial# Code ACIST Syringe Acist 1 68502 902904 854944 105679 2 0 (58050) Medical Systems Inc Bag Decanter Microtek 1 827539 55827 710669 5 () Medical Inc. Medline Cath Medline 1 [id number] 984512 60141 309788 5 Pack ([id number]) DIAGNOSTIC St [place] 1 614191 066594 276337 255975 3 0 WIRE .035 260cm J wire (543407) ACIST Hand Acist 1 32620 921878 594460 937764 5 Control Medical (29763) Systems Inc ACIST Manifold Acist 1 41333 068802 327653 707623 5 (08310) Medical Systems Inc DIAGNOSTIC Cardinal 1 UI8509 662053 19368 399626 3 0 Multipack 5Fr Health catheter set (WM7403) Tegaderm 4 x 4 3M 1 1626W 198362 057000 287389 5 (1626W) SHEATH 5FR Terumo 1 ZKX255 985142 556221 050574 5 [place] (SBS697) MULTIPACK Cardinal 1 061298 5 Pigtail 5 Fr Health catheter MULTIPACK JL Cardinal 1 223990 5 4.0 5Fr Health catheter MULTIPACK 3DRC Cardinal 1 643008 5 5Fr catheter Health SHEATH 6FR Terumo 1 VSQ172 942292 346075 753343 4 0 [place] (ESF217) INFLATOR Merit Merit 1 VM1258 621801 245336 984382 1 5 Slate Science (PL0768) CHOICE PT [place] 1 [id number] 892667 237166 885958 5 Extra Support Scientific 182cm wire ([id number]) EXOSEAL 6Fr Cardinal 1 EX600 824080 365124 065698 1 0 (EX600) Health GUIDE 6FR Cardinal 1 [id number] 279600 918718 333950 3 XBLAD 4.0 Health catheter (54564182) SHAUN RX 2.5 x Medtronic 1 [id number] 801749 7488439 175523 5 [id number] 15 stent ([id number]) Signature Audit [place] Stage Time Signature Unsigned Intra-Procedure 12/31/2018 Karan Saha RT(R) 4:44:56 PM Signatures Monitor : Karan Saha RT Signature : Date : Time : [address] [address]
--- NOTE | ~2018-12-31 | OP ---
PATIENT NAME: ALBINO REDNON MEDICAL RECORD: [id number] :67 LOCATION:[address] [address] ADMISSION DATE:12/31/18 SURGEON: BEBETO ZARAGOZA MD DATE OF OPERATION: 12/31/2018 PROCEDURES: 1. PTCA stent LAD. 2. Left heart catheterization. 3. Selective coronary angiography. 4. Left ventriculogram. INDICATION: Angina and coronary artery disease. PROCEDURE IN DETAIL: After informed consent was obtained and after a detailed description of the risks, benefits as well as alternative therapies, the patient elected to proceed with angiogram and angioplasty. The right radial area was prepped and draped in normal sterile fashion. Right radial artery was cannulated via modified Seldinger technique with placement of 6-Kyrgyz sheath. All catheters exchanged through this sheath. FINDINGS: The left ventriculogram was performed in standard 30-degree ALVARADO view, reveals good cardiac wall motion throughout all segments. Overall ejection fraction estimated 60%. SELECTIVE CORONARY ANGIOGRAPHY: 1. Left main is with no significant angiographic disease. 2. Left anterior descending has previously placed stents, these are widely patent; however, there is a new area of 70% to 75% stenosis in the mid vessel. 3. Left circumflex has moderate irregularities, but no flow-limiting stenosis. 4. Right coronary has moderate irregularities, but no flow-limiting stenosis. PTCA STENT OF THE LAD: The stent used was a 2.5 x 15 mm [place]. Result was 0% residual stenosis. OVERALL IMPRESSION: Successful percutaneous transluminal angioplasty stent of the left anterior descending going from 75% initial stenosis to 0% residual. TRANSINT:[id number] Voice Confirmation ID: [id number] DOCUMENT ID: [id number] BEBETO ZARAGOZA MD CC: [id number] DICTATION DATE: 12/31/18 1644 OUTDOOR LANDSCAPE ARCHITECT: 12/31/182006 ADM IN [facility] [address] [place] [address]
[2018-12-31 02:11] LABS: BASOPHILS 0.2 % (0-2); EOSINOPHILS 2.3 % (0-7); HEMATOCRIT 43.4 % (42.0-54.0); HEMOGLOBIN 15.6 g/dL (13.5-17.5); LYMPHOCYTES 50.5 % (15-50); MCH 32.9 pg (26.0-34.0); MCHC 35.9 g/dL (31.0-37.0); MCV 91.6 fL (80.0-100.0); MEAN PLATELET VOLUME 9.5 fL (7.4-10.4); MONOCYTES 9.9 % (2-11); NEUTROPHILS 37.1 % (40-80); PLATELET COUNT 197 10x3/uL (130-400); RBC 4.74 10x6/uL (4.20-6.10); RDW 12.4 % (11.5-14.5); WBC 4.9 10x3/uL (4.8-10.8)
[2018-12-31 02:14] LABS: INR 1.03 (0.85-1.17)
[2018-12-31 02:28] LABS: ALBUMIN 3.5 g/dL (3.4-5.0); ALKALINE PHOSPHATASE 116 U/L (46-116); ALT (SGPT) 52 U/L (10-68); BILIRUBIN - TOTAL 0.18 mg/dL (0.2-1.3); CALC OSMOLALITY 282 mosm/kg (275-300); CALCIUM 8.4 mg/dL (8.5-10.1); CARBON DIOXIDE 23.9 mmol/L (21.0-32.0); CHLORIDE - SERUM 100 mmol/L (98-107); CREATININE - SERUM 0.8 mg/dL (0.6-1.3); GLUCOSE 313 mg/dL (74-106); POTASSIUM - SERUM 3.6 mmol/L (3.5-5.1); SODIUM 137 mmol/L (136-145); UREA NITROGEN 5 mg/dL (7-18); eGFR NON AFRICAN AMERICAN > 90 mL/min (90-120)
[2018-12-31 02:30] LABS: CKMB 2.7 U/L (0.0-3.6); CREATINE KINASE 153 UL (21-232); MAGNESIUM - SERUM 1.7 mg/dL (1.8-2.4); TROPONIN-I < 0.017 ng/mL (0.000-0.060)
--- NOTE | 2018-12-31 03:30 | NUR ---
ADMIT FROM ER IA WC. TO BED LOCKED AND IN LOW POSITION. SRX2 AND CALL LIGHT PLACED WITHIN REACH ...DENIES CP AT THIS TIME SKIN WARM AND DRY IV TO LEFT AC. LCTA SOME SCRATCHES ON ARMS BUT NO SKIN BREAKDOWN. MEDICINE AND HISTORY EXPLORED WITH PT AND UPDATED. PREETI NOTED AND APPLIED TO BAND
--- NOTE | 2018-12-31 04:07 | NUR ---
AT REST AROUSES AND CONTINUES TO DENY CP
--- NOTE | 2018-12-31 05:46 | NUR ---
ADMIT ASSESSMENT COMPLETE. PT IS AAO, DENIES ANY CHEST PAIN. S1S2 RRR, LUNGS CLEAR EXCEPT RIGHT LOWER QUAD HAS RHONCI. PT BOWEL SOUNDS ACTIVE. SOFT NON DISTENDED ABDOMEN. OBESE. PT LEFT AC PIV 20G S/L PT IS 97 SR ON THE MONITOR. PT WILL CALL FOR ASSIST WHEN NEEDED. WILL CPOC
[2018-12-31 06:01] VITALS: BP 137/76; BMI 28.0
--- NOTE | 2018-12-31 07:30 | NUR ---
PT LYING IN BED SLEEPING, DID NOT WAKE I ENTERED, DID NOT FURTHER DISTURB AT THIS TIME. CL IN REACH. SRX2.
[2018-12-31 08:54] LABS: CKMB 2.2 U/L (0.0-3.6); CREATINE KINASE 131 UL (21-232); TROPONIN-I < 0.017 ng/mL (0.000-0.060)
[2018-12-31 10:21] VITALS: BP 130/77
[2018-12-31 12:00] VITALS: BP 129/75
[2018-12-31 13:37] VITALS: Ht 195.6 cm; Wt 106.6 kg
[2018-12-31 14:58] LABS: CKMB 1.8 U/L (0.0-3.6); CREATINE KINASE 115 UL (21-232)
[2018-12-31 14:59] LABS: TROPONIN-I < 0.017 ng/mL (0.000-0.060)
--- NOTE | 2018-12-31 15:13 | HP ---
PATIENT: ALBINO PADILLA MEDICAL RECORD: [id number] ACCOUNT: [id number] LOCATION:[address] : 67 ADMISSION DATE: 12/31/18 PCP: TODD SENA MD HISTORY AND PHYSICAL EXAMINATION DIAGNOSES: 1. Unstable angina. 2. Coronary artery disease. 3. Previous multivessel percutaneous transluminal coronary angioplasty stent. 4. Hypertension. 5. Hyperlipidemia. HISTORY OF PRESENT ILLNESS: Mr. Padilla presents with increasing anginal symptomatology in an unstable fashion just like that of his previous angina. He is status post multivessel PTCA stent in the past. PHYSICAL EXAMINATION: GENERAL APPEARANCE: Well-nourished, well-developed, appears stated age. Level of distress, comfortable. PSYCHIATRIC: Mental status, alert, normal affect. Orientation, oriented to time, place and person. EYES: Lids and conjunctiva, noninjected. No discharge, no pallor. ENT: Lips, teeth, gums, normal dentition. Oropharynx, no cyanosis, no pallor. NECK: Carotid arteries, bilateral normal upstroke, no bruits, no thrills. JUGULAR VEINS: No jugular venous pressure or distention. CERVICAL LYMPH NODES: Nontender, nonenlarged. THYROID: Not enlarged. Nontender. No nodules. LUNGS: Respiratory effort, unlabored. CHEST: Normal curvature. No thoracic deformity. No chest wall tenderness. Percussion, resonant. Auscultation, clear. No wheezes, no rales, no rhonchi. CARDIOVASCULAR: Precordial exam, nondisplaced. No heaves or pericardial thrills. Rate and rhythm, regular. Heart sounds, normal S1, normal S2. No S3, no gallop, no rub. Systolic murmur, not heard. Diastolic murmur, not heard. EXTREMITIES: No cyanosis, no edema. Peripheral pulses, full and equal in all extremities, except as noted. No bruits appreciated. ABDOMEN: Soft, nondistended. Normal aorta. No bruit. Nontender. No masses. Liver, nontender, no hepatomegaly. Spleen, nontender, no splenomegaly. MUSCULOSKELETAL: No joint tenderness. No joint swelling. No erythema. NEUROLOGICAL: Normal gait, normal strength, normal tone. SKIN: Warm and dry. OVERALL IMPRESSION: Unstable angina in a patient with a past history of multivessel percutaneous transluminal coronary angioplasty stent. We will proceed with coronary angiography. Further care depends upon findings of the angiography. TRANSINT:[id number] Voice Confirmation ID: [id number] DOCUMENT ID: [id number] HISTORY AND PHYSICAL [id number] ALBINO PADILLA JEFFREY MD at 1513 CC: [id number] DICTATION DATE: 12/31/18 0752 INSOLVENCY PRACTITIONER: 12/31/18 0855 ADM IN [facility] [address] [id number]
[2018-12-31 16:45] VITALS: BP 132/68
--- NOTE | 2018-12-31 17:32 | NUR ---
I have reviewed this patient and I concur with the Shift Assessment completed by the Licensed Practical Nurse today this shift.
--- NOTE | 2018-12-31 17:33 | NUR ---
PT LYING IN BED, NO CONCERNS OR COMPLAINTS AT THIS TIME. CL IN REACH. SRX2
--- NOTE | 2018-12-31 18:06 | NUR ---
PT HAS PULSE IN RIGHT LEG. CATH SITE C/D/I. NO COMPLAINTS OF PAIN. LYING PRONE.
--- NOTE | 2018-12-31 19:45 | NUR ---
THE PATIENT APPEARED TO BE SLEEPING BUT AWOKE WHEN STAFF ENTERED HIS ROOM. BED IS IN THE LOW POSITION WITH SIDERAILS X2 AND CALL LIGHT WITHIN REACH. THE PATIENT DEMONSTRATES APPROPRIATE USE OF A CALL LIGHT. THE PATIENT APPEARS COMFORTABLE WITH NO QUESTIONS OR CONCERNS AT THIS TIME.
--- NOTE | 2018-12-31 20:01 | NUR ---
PT SITTING UP ON THE SIDE OF BED ALERT AND ORIENTED EATING A SANDWHICH. DRESSING TO LEFT GROIN C/D/I. PT DENIES ANY PAIN OR NEEDS AT THIS TIME. BED LOW CALL LIGHT WITHIN REACH. WILL CONTINUE TO MONITOR.
[2018-12-31 21:30] VITALS: BP 113/76
[2018-12-31 23:55] VITALS: BP 103/58
--- NOTE | 2019-01-01 01:44 | NUR ---
PT RESTING IN BED WITH EYES CLOSED. RR EVEN AND UNLABORED. BED LOW CALL LIGHT WITHIN REACH. WILL CONTINUE TO MONITOR.
[2019-01-01 04:59] LABS: BASOPHILS 0.2 % (0-2); EOSINOPHILS 1.9 % (0-7); HEMATOCRIT 41.1 % (42.0-54.0); HEMOGLOBIN 14.5 g/dL (13.5-17.5); LYMPHOCYTES 29.4 % (15-50); MCH 32.4 pg (26.0-34.0); MCHC 35.3 g/dL (31.0-37.0); MCV 91.9 fL (80.0-100.0); MEAN PLATELET VOLUME 9.4 fL (7.4-10.4); MONOCYTES 11.3 % (2-11); NEUTROPHILS 57.2 % (40-80); PLATELET COUNT 182 10x3/uL (130-400); RBC 4.47 10x6/uL (4.20-6.10); RDW 12.3 % (11.5-14.5); WBC 4.8 10x3/uL (4.8-10.8)
[2019-01-01 05:20] LABS: ALKALINE PHOSPHATASE 99 U/L (46-116); ALT (SGPT) 45 U/L (10-68); BILIRUBIN - TOTAL 0.33 mg/dL (0.2-1.3); CALC OSMOLALITY 277 mosm/kg (275-300); CALCIUM 8.5 mg/dL (8.5-10.1); CARBON DIOXIDE 26.6 mmol/L (21.0-32.0); CHLORIDE - SERUM 101 mmol/L (98-107); CREATININE - SERUM 0.5 mg/dL (0.6-1.3); GLUCOSE 232 mg/dL (74-106); POTASSIUM - SERUM 3.5 mmol/L (3.5-5.1); SODIUM 136 mmol/L (136-145); UREA NITROGEN 10 mg/dL (7-18); eGFR NON AFRICAN AMERICAN > 90 mL/min (90-120)
--- NOTE | 2019-01-01 07:23 | NUR ---
PT ASLEEP, DID NOT WAKE I ENTERED. DID NOT FURTHER DISTURB AT THIS TIME. CL IN REACH SRX2.
[2019-01-01 08:14] VITALS: BP 108/69
--- NOTE | 2019-01-01 10:38 | NUR ---
I have reviewed this patient and I concur with the Shift Assessment completed by the Licensed Practical Nurse today this shift.
--- NOTE | 2019-01-01 11:49 | NUR ---
PT AMBULATED SELF OUT TO CAR. BELONGINGS IN TOW. NO COMPLAINTS/CONCERNS VOICED, NO CONCNERING ABNORMAILITIES NTOED ON HIS WAY OUT.
--- NOTE | 2019-01-03 08:23 | MORECARE ---
CASE MANAGEMENT DISCHARGE SUMMARY PATIENT: ALBINO RENDON UNIT: [id number] ADM DATE: 12/31/18 AGE: 53 : 67 SEX: M ROOM/BED: D.2132 AUTHOR: RUSTY LIM PHYSICIAN: REFERRING PHYSICIAN: BEBETO ZARAGOZA MD DATE OF SERVICE: 01/03/19 Discharge Plan Patient Name: ALBINO RENDON [facility] [facility] 1965 Planned Disposition: Home Anticipated Discharge Date: 01/01/19 Discharge Date: 01/01/2019 Expected LOS: 1 Initial Reviewer: [email or web address] Initial Review Date: 01/03/2019 Generated: 01/03/19 9:23 am Patient Name: ALBINO RENDON Page [id number] at 0823 All edits/amendments must be made on the electronic document DICTATION DATE: 01/03/19822 GAGE DESIGNER: KENYA 01/03/19822 RPT#: [id number] DC DATE:01/01/19 STATUS: DIS IN [facility] [address] [place] [address] END OF REPORT
== END 2019-01-01 11:54 | disposition home or self-care (01) ==
LOC: D.ER 01:32 → OBSVTIME 02:09 → D.M2 02:09 → D.EDHOLD 02:09 → D.M2 03:17
PROVIDERS: Family Medicine; ADMIT Internal Medicine Interventional Cardiology; ATTEND Internal Medicine Interventional Cardiology
DX: I25.119 Atherosclerotic heart disease of native coronary artery with unspecified angina pectoris (principal); I10 Essential (primary) hypertension; E78.5 Hyperlipidemia, unspecified
CPT/HCPCS: 93458; C9600